=== PATIENT | female | born 1990 | race Caucasian/White ===

== ENCOUNTER 2018-08-15 12:30 | Inpatient (IN) | payer OTHER ==
[~2018-08-15] VITALS: Ht 160 cm; Wt 116.1 kg
[2018-08-16] MEDS ORDERED: PRENATAL TABLE1 EAC1 PO (00:42)
[2018-08-17] MEDS ORDERED: RHOGAM ULTR1500 UNIT IM (10:10)
== END 2018-08-18 12:41 | disposition home or self-care (01) | DRG 807 ==
LOC: LDR 23:30 → OB/GYN 23:30 → LDR 08-16 06:24 → OB/GYN 08-16 07:00 → EDBD 09-01 12:30
PROC: 10E0XZZ Delivery of Products of Conception, External Approach (ICD-10-PCS; principal; 2018-08-16)
PROC: 0W8NXZZ Division of Female Perineum, External Approach (ICD-10-PCS; 2018-08-16)
PROC: 4A1HXCZ Monitoring of Products of Conception, Cardiac Rate, External Approach (ICD-10-PCS; 2018-08-16)
DX: O80 Encounter for full-term uncomplicated delivery (principal); Z37.0 Single live birth; Z3A.37 37 weeks gestation of pregnancy; Z22.330 Carrier of Group B streptococcus